=== PATIENT | male | born 1950 | race African-American/Black ===

== ENCOUNTER 2021-08-19 09:47 | Emergency (ER) | payer MEDICAID, OTHER ==
[~2021-08-19] VITALS: Ht 180.3 cm; Wt 96.2 kg
[2021-08-19 11:03] LABS: Urine Bacteria FEW /hpf (None Seen); Urine Blood Negative /uL (Negative); Urine Mucus FEW (None Seen); Urine Specific Gravity 1.022 (1.001-1.035); Urine WBC 38 /hpf (0 - 3)
[2021-08-19 13:03] VITALS: BP 118/69
[2021-08-19] MEDS ORDERED: cefTRIAXone SOD 1,000 MG VL IM ONE (13:30)
[2021-08-19] MEDS ORDERED: LEVO-28 PO (13:31)
== END 2021-08-19 13:58 | disposition home or self-care (01) ==
LOC: ER 09:47
DX: Z20.2 Contact with and (suspected) exposure to infections with a predominantly sexual mode of transmission (principal); N45.1 Epididymitis; N39.0 Urinary tract infection, site not specified; I10 Essential (primary) hypertension; F17.210 Nicotine dependence, cigarettes, uncomplicated; Z79.2 Long term (current) use of antibiotics
CPT/HCPCS: 76870; 81001; 96372; 99284; J0696

== ENCOUNTER 2022-02-04 12:59 | Inpatient (IN) | payer OTHER, MEDICAID ==
[~2022-02-04] VITALS: Ht 180.3 cm; Wt 96.0 kg
[~2022-02-04 12:59] MED LIST: LEVO-28 PO
[2022-02-04 14:43] LABS: Urine Bacteria FEW /hpf (None Seen); Urine Blood Negative /uL (Negative); Urine Mucus FEW (None Seen); Urine WBC 4 /hpf (0 - 3)
[2022-02-04 14:46] LABS: Albumin 4.1 g/dL (3.4-5.0); Calcium 9.5 mg/dL (8.5-10.1); Magnesium 2.3 mg/dL (1.6-2.6); Potassium 4.8 mmol/L (3.5-5.1)
[2022-02-04 14:49] LABS: BUN/Creatinine Ratio 9.1; Bilirubin, Total 0.6 mg/dL (0.2-1.0); Total Protein 7.6 g/dL (6.4-8.2)
[2022-02-04 15:21] LABS: Basophils # (auto) 0 10 ^3/uL (0-0.2); Basophils % (auto) 0.5 % (0.0-2.0); Eosinophils # (auto) 0.2 10 ^3/uL (0-0.8); Eosinophils % (auto) 2.2 % (0.0-7.0); Hematocrit 44.7 % (41.0-53.0); Hemoglobin 13.7 g/dL (13.5-17.5); Lymphocytes # (auto) 2.8 10 ^3/uL (0.4-5.4); Lymphocytes % (auto) 29.2 % (10.0-50.0); Mean Corpuscular Hemoglobin 19.7 pg (28.0-32.0); Mean Corpuscular Hgb Conc. 30.7 g/dL (32.0-36.0); Mean Corpuscular Volume 64.1 fL (80.0-100.0); Monocytes # (auto) 0.7 10 ^3/uL (0-1.3); Monocytes % (auto) 7.7 % (0.0-12.0); Neutrophils # (auto) 5.8 10 ^3/uL (1.6-8.6); Neutrophils % (auto) 60.4 % (37.0-80.0); Nucleated Red Blood Cells % 0.1 %; Red Blood Cells 6.97 10^6/uL (4.5-5.90); White Blood Cell 9.6 10^3/uL (4.4-10.8)
[2022-02-04] MEDS ORDERED: HYDROcodone-ACET 5/325MG TAB PO PRN (18:00)
[2022-02-04] MEDS ORDERED: MORPHINE SULFATE INJ 2 MG/ml SYRG IV PRN (18:00)
[2022-02-04] MEDS ORDERED: ACETAMINOPHEN 325 MG TAB PO PRN (18:00)
[2022-02-05] MEDS ORDERED: amLODIPine BESYLATE 5 MG TAB PO PRN (03:30)
[2022-02-05] MEDS ORDERED: cloNIDine HCL 0.1 MG TAB PO ONE (04:00)
[2022-02-05 04:03] VITALS: BP 151/90
[2022-02-05 05:00] VITALS: BP 151/90
[2022-02-05] MEDS ORDERED: LOSA-69 PO (05:36)
[2022-02-05] MEDS ORDERED: SUMA100T15 PO (05:36)
[2022-02-05] MEDS ORDERED: OMEP20TA PO (05:36)
[2022-02-05] MEDS ORDERED: SERT50TA19 PO (05:36)
[2022-02-05] MEDS ORDERED: TAMS0.4C36 PO (05:36)
[2022-02-05 05:46] LABS: Basophils # (auto) 0 10 ^3/uL (0-0.2); Basophils % (auto) 0.5 % (0.0-2.0); Eosinophils # (auto) 0.2 10 ^3/uL (0-0.8); Hemoglobin 12.4 g/dL (13.5-17.5); Lymphocytes # (auto) 2.9 10 ^3/uL (0.4-5.4); Mean Corpuscular Hemoglobin 19.5 pg (28.0-32.0); Red Blood Cells 6.33 10^6/uL (4.5-5.90)
[2022-02-05 05:48] LABS: Eosinophils % (auto) 2.2 % (0.0-7.0); Hematocrit 40.4 % (41.0-53.0); Lymphocytes % (auto) 34.2 % (10.0-50.0); Mean Corpuscular Hgb Conc. 30.6 g/dL (32.0-36.0); Mean Corpuscular Volume 63.8 fL (80.0-100.0); Monocytes # (auto) 0.5 10 ^3/uL (0-1.3); Monocytes % (auto) 6.2 % (0.0-12.0); Neutrophils # (auto) 4.8 10 ^3/uL (1.6-8.6); Neutrophils % (auto) 56.9 % (37.0-80.0); White Blood Cell 8.5 10^3/uL (4.4-10.8)
[2022-02-05 05:56] LABS: Potassium 3.9 mmol/L (3.5-5.1)
[2022-02-05 06:02] LABS: Albumin 3.6 g/dL (3.4-5.0); BUN/Creatinine Ratio 12.2; Bilirubin, Total 0.5 mg/dL (0.2-1.0); Calcium 9.2 mg/dL (8.5-10.1); Total Protein 7.1 g/dL (6.4-8.2)
[2022-02-05 09:00] VITALS: BP 135/91
[2022-02-05] MEDS: ASPirin-EC 81 mg tab PO SCH (09:54)
[2022-02-05] MEDS: CARVEDILOL 3.125 MG TAB PO SCH ×2 (09:54→21:38)
[2022-02-05] MEDS: ENOXAPARIN SOD 40 MG/0.4 ML SYRINGE SC SCH (09:54)
[2022-02-05 13:00] VITALS: BP 134/86
[2022-02-05 17:03] VITALS: BP 147/83
[2022-02-05 22:00] VITALS: BP 147/81
[2022-02-05] MEDS ORDERED: ATORVASTATIN 20 MG TAB PO SCH (22:00)
[2022-02-06 05:00] VITALS: BP 135/81
[2022-02-06 09:00] VITALS: BP 134/81
[2022-02-06] MEDS: CARVEDILOL 3.125 MG TAB PO SCH (10:00)
[2022-02-06] MEDS: ASPirin-EC 81 mg tab PO SCH (10:00)
[2022-02-06] MEDS: ENOXAPARIN SOD 40 MG/0.4 ML SYRINGE SC SCH (10:52)
[2022-02-06] MEDS ORDERED: ERGOCALCIFEROL 50,000 UNIT(1.25MG) CAP PO SCH (12:00)
[2022-02-06 13:00] VITALS: BP 147/96
[2022-02-06 17:00] VITALS: BP 170/100
== END 2022-02-06 19:35 | disposition home or self-care (01) | DRG 313 ==
LOC: ER 12:59 → TELE 18:00 → TELE-WESTW 02-05 03:26
PROVIDERS: ADMIT Internal Medicine; ATTEND Internal Medicine
DX: R07.89 Other chest pain (principal); E66.9 Obesity, unspecified; K21.9 Gastro-esophageal reflux disease without esophagitis; G43.909 Migraine, unspecified, not intractable, without status migrainosus; Z20.822 Contact with and (suspected) exposure to COVID-19; F17.210 Nicotine dependence, cigarettes, uncomplicated; F43.10 Post-traumatic stress disorder, unspecified; I10 Essential (primary) hypertension; N40.0 Benign prostatic hyperplasia without lower urinary tract symptoms; Z68.29 Body mass index [BMI] 29.0-29.9, adult
CPT/HCPCS: 36415; 71046; 80053; 81001; 82306; 83036; 83735; 83880; 84443; 84484; 85025; 93005; 93306; G0378

== ENCOUNTER 2023-06-22 07:24 | Day surgery (SDC) | payer OTHER, MEDICAID ==
[2023-06-22] VITALS (11 sets, daily range): BP systolic 128–150; BP diastolic 52–99; PULSE 76–90; RESP 14–19; TEMP 98.4; O2SAT 97–100
[~2023-06-22 07:24] MED LIST changes: -LEVO-28 PO; +LEVO500T91 PO; +LOSA50TA46 PO; +OMEP20TA PO; +SERT-206 PO; +SUMA100T15 PO; +TAMS0.4C36 PO
[2023-06-22] MEDS ORDERED: LIDOCAINE 2%HCL (LOCAL ANESTH.) INJ 20ML MDV ONE (07:54)
[2023-06-22] MEDS ORDERED: IODIXANOL 320MG/ML 100ML BTL IV ONE (07:54)
[2023-06-22] MEDS ORDERED: ANGIOMAX 250 MG VIAL IV ONE (08:16)
[2023-06-22] MEDS ORDERED: HEPARIN SODIUM (PORCINE) 5000 UNITS/ML 1ML VIAL ONE (08:16)
[2023-06-22] MEDS ORDERED: fentaNYL CITRATE 100 MCG/2 ML VL ONE (08:17)
[2023-06-22] MEDS ORDERED: VERAPAMIL 2.5MG/ML INJ 2ML VIAL IV ONE (08:17)
[2023-06-22] MEDS ORDERED: SODIUM CHL 0.9% 0 ML ONE (08:17)
[2023-06-22] MEDS ORDERED: MIDAZOLAM HCL 2MG/2ML 2ml VIAL (1mg/ml) ONE (08:17)
== END 2023-06-22 11:24 | disposition home or self-care (01) ==
LOC: CATH 07:24
PROVIDERS: ATTEND Internal Medicine Cardiovascular Disease
DX: I25.10 Atherosclerotic heart disease of native coronary artery without angina pectoris (principal); I25.118 Atherosclerotic heart disease of native coronary artery with other forms of angina pectoris; I10 Essential (primary) hypertension; G40.909 Epilepsy, unspecified, not intractable, without status epilepticus; F32.9 Major depressive disorder, single episode, unspecified; N40.0 Benign prostatic hyperplasia without lower urinary tract symptoms; F17.210 Nicotine dependence, cigarettes, uncomplicated; Z79.899 Other long term (current) drug therapy; Z98.890 Other specified postprocedural states
CPT/HCPCS: 93458; C1894; J1644; J2250; J3010; J7030; Q9967; 99152